=== PATIENT | female | born 1945 | race Caucasian/White ===

== ENCOUNTER → 2016-03-17 | Outpatient (CLI) | payer MEDICARE ==
--- NOTE | 2016-03-19 12:30 | XCELERA REPORT ---
[address] [address] Lower Extremity Arterial Evaluation Name: VALENTE CAMACHO Age: 71 yrs Gender: Female : 1945 Patient Status: Outpatient Patient Location: Study Date: 03/17/2016 11:05 AM Procedure: A color flow and duplex scan of the lower extremity arteries was performed bilaterally with velocity and waveform anaylsis. Ankle brachial indicies performed. Reason For Study: PVD Ordering Physician: APPLE PUCKETT Performed By: Lyndon Bazzi Measurements and Calculations Right Left SELF RISING FLOUR MIXER PSV 156.3 174.8 cm/sec Prox PFA PSV -112.6 -91.5 cm/sec Dist SFA PSV -99.9 -101.3 cm/sec Prox Pop A PSV 98.1 67.8 cm/sec Dist ANNE PSV 78.1 93.8 cm/sec Dist DENTAL PATIENT COORDINATOR PSV 79.2 92.8 cm/sec Sang Pedis PSV 88.2 -66.8 cm/sec Right Side Arterial Evaluation Normal velocity, waveform and triphasic flow are present, from the Common Femoral artery down to the infrageniculate vessels. The ankle-brachial index is 1.13. 0 % stenosis is noted. Left Side Arterial Evaluation Normal velocity, waveform and triphasic flow are present, from the Common Femoral artery down to the infrageniculate vessels. The ankle-brachial index is 1.10. 0 % stenosis is noted. Interpretation Summary No hemodynamically significant lesions in the bilateral lower extremities, on duplex imaging, at rest. : APPLE PUCKETT [place]
== END ==
LOC: SP 10:34
PROVIDERS: ATTEND Internal Medicine
DX: I73.9 Peripheral vascular disease, unspecified (principal)
CPT/HCPCS: 93925

== ENCOUNTER 2017-12-26 10:48 | Day surgery (SDC) | payer MEDICARE ==
[~2017-12-26 10:48] MED LIST: PROPOFOL INJ 200 MG/20 ML VIAL IV ONE
--- NOTE | 2017-12-26 11:30 | EKG REPORT ---
SEVERITY:- ABNORMAL ECG - AFIB/FLUT AND V-PACED COMPLEXES NONSPECIFIC T ABNORMALITIES, DIFFUSE LEADS : Confirmed by: Melissa Gonzalez MD 26-Dec-2017 11:28:40
[2017-12-26 13:33] VITALS: BP 138/69
--- NOTE | 2017-12-26 13:41 | Operative Report ---
Operative Report DATE OF SURGERY: 12/26/17 Operative Report: The risks, benefits and alternatives of the procedure including the risk of bleeding, perforation requiring surgery are explained to the patient in detail and informed consent is obtained. The patient is placed in a left, lateral decubital position. Timeout was called. Propofol medication is administered. A rectal examination is done which did not reveal any masses, tears or fissures. An Olympus videoscope was introduced into the patient's rectum. The scope was then carefully advanced all the way to the cecum. The cecum was identified by the usual anatomical landmarks including the ileocecal valve as well as the appendiceal office. Photodocumentation was obtained. The scope was then sequentially pulled back via the various segments of the colon including the ascending colon, hepatic flexure, transverse colon, splenic flexure, descending colon and finally to the rectosigmoid portions of the colon. Retroflexion maneuvers performed. The risks benefits and alternatives of the procedure explained to the patient in detail and informed consent is obtained,A GIF Olympus video scope was inserted into the patient's mouth and hypopharynx, the esophagus is identified intubated and insufflated, the scope was then advanced through the esophagus stomach and duodenum, retroflexion maneuver is done the esophagus stomach and first and second portions of the duodenum examined PREOPERATIVE DIAGNOSIS: Dysphagia. Personal history of polyps POSTOPERATIVE DIAGNOSIS: Successful intubation of the esophagus. Schatzki's ring that is broken. Gastritis status post biopsy rule out Helicobacter pylori. Duodenitis status post biopsy. Right colon inflammation status post biopsy. Diverticulosis without any evidence of diverticulitis. Internal hemorrhoids. Carbon dioxide insufflation of the colon is done OPERATION: Colonoscopy with biopsy. EGD with biopsy SURGEON: RHONA FRANKLIN ANESTHESIA: LMAC TISSUE REMOVED OR ALTERED: As noted above. COMPLICATIONS: None. ESTIMATED BLOOD LOSS: None. INTRAOPERATIVE FINDINGS: As noted above. PROCEDURE: Patient tolerated the procedure well. No immediate postprocedure complications are noted. Patient discharged in good condition. Discharge date 12/26/2017. Discharge diet: Regular. Discharge activity: Regular. 2-3-week follow-up to discuss findings. Patient is instructed call the office or proceed to the emergency room should there be any further problems or questions. Wait on the pathology.
== END 2017-12-26 13:17 | disposition home or self-care (01) ==
LOC: END 10:48
PROVIDERS: ATTEND Internal Medicine Gastroenterology
DX: K22.2 Esophageal obstruction (principal); K29.50 Unspecified chronic gastritis without bleeding; K29.80 Duodenitis without bleeding; K57.30 Diverticulosis of large intestine without perforation or abscess without bleeding; K52.9 Noninfective gastroenteritis and colitis, unspecified; K64.8 Other hemorrhoids; K44.9 Diaphragmatic hernia without obstruction or gangrene; Z86.010 Personal history of colon polyps; Z80.0 Family history of malignant neoplasm of digestive organs; I48.91 Unspecified atrial fibrillation; I10 Essential (primary) hypertension; J45.909 Unspecified asthma, uncomplicated; M19.90 Unspecified osteoarthritis, unspecified site; I25.10 Atherosclerotic heart disease of native coronary artery without angina pectoris; G47.30 Sleep apnea, unspecified; E78.5 Hyperlipidemia, unspecified; D72.819 Decreased white blood cell count, unspecified; Z79.899 Other long term (current) drug therapy; Z79.51 Long term (current) use of inhaled steroids; Z79.01 Long term (current) use of anticoagulants; Z88.8 Allergy status to other drugs, medicaments and biological substances; Z88.5 Allergy status to narcotic agent
CPT/HCPCS: 43239; 45380; 82962; 88305 ×2; 93005; 93010; J2704; 813

== ENCOUNTER 2019-07-17 08:17 | Day surgery (SDC) | payer MEDICARE ==
[2019-07-17 09:35] LABS: INTERNATIONAL RATION (INR) 1.26; PROTHROMBIN TIME 15.9 SEC (11.4-15.4)
[2019-07-17 09:36] LABS: PARTIAL THROMBOPLASTIN TIME 30.4 SEC (23.5-35.8)
[2019-07-17 13:15] VITALS: BP 130/70
--- NOTE | 2019-07-17 14:40 | RADIOLOGY REPORT (SQ) ---
EXAM DESCRIPTION: CT LUMBAR SPINE WITH; MYELOGRAM LUMBAR IMAGES COMPLETED DATE/TIME: 07/17/2019 11:03 am REASON FOR STUDY: SPINAL STENOSIS M48.062 SPINAL STENOSIS, LUMBAR REGION WITH NEUROGENIC EROS Z79. 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 TECHNIQUE: Fluoroscopic guided lumbar myelogram. LIMITATIONS: None. PROCEDURE: After written consent and assessment were obtained, the patient was brought into the fluo roscopy room and placed prone on the table. The patient's lower back was prepped in a sterile fashio n and an entry site was selected under live fluoroscopic guidance. The entry site was anesthetized wi th 1% lidocaine. The spinal needle was advanced through the skin and into the thecal sac at the level of L2-3. Contrast was injected into the thecal sac. Following the procedure the needle was removed and a sterile bandage was placed of the site. CONTRAST: Omnipaque 180 13 cc. IMAGES ACQUIRED: 16 TECHNIQUE: After performing lumbar myelogram, axial images were acquired through the lumbar spine wi thout intravenous contrast. Images reviewed with lung, soft tissue and bone windows. Reconstructed coronal and sagittal MPR images reviewed. All images stored on PACS. All CT scanners at this facility use dose modulation, iterative reconstruction, and/or weight based d osing when appropriate to reduce radiation dose to as low as reasonably achievable (ALARA). [facility]: Dose Right [facility]: CareDose [facility]: Dose Right [facility]: Teradose 4D [facility]: [employer] FINDINGS: SEGMENTATION: 5 yrq-xqv-rgpeaaj lumbar vertebral bodies. ALIGNMENT: There is grade 1 anterolisthesis of L4 on L5. Normal lumbar lordosis. No significant sco liosis. VERTEBRAL BODIES: No fracture or dislocation. Multilevel osteophytosis. No significant compression deformity. HARDWARE: None in the spine. DISCS: L1-L2: Degenerative disc disease with significant disc height loss. Circumferential posterior disc b ulging and osteophyte complex with resultant mild canal stenosis. There is epbv-ai-laqzmddn bilatera l neural foraminal narrowing secondary to disc disease. L2-L3: Significant disc height loss and osteophytosis. Posterior disc osteophyte complex with result ant mild central canal stenosis. There is moderate right and mzti-it-doyhxkbv left neural foraminal narrowing secondary to disc disease. L3-L4: Significant degenerative disc disease with disc height loss and posterior disc osteophyte comp yosvany. Bilateral facet arthropathy. There is oocq-jf-auvaoueb spinal canal stenosis with narrowing of the lateral recess and contact of the traversing nerve roots, left greater than right. There is mil d right and wjsq-ax-sexpoxgl left neural foraminal narrowing secondary to disc and facet disease. L4-L5: Grade 1 anterolisthesis of L4 on L5. There is significant disc height loss and osteophytosis with bilateral facet hypertrophy resulting in moderate to severe spinal canal stenosis and lateral re cess narrowing. There is hcbi-og-jpvuwokv right and moderate to severe left neural foraminal narrowi ng secondary to disc and facet disease. L5-S1: Significant disc height loss and facet arthropathy with mild to moderate canal stenosis. Ther e is severe right and moderate to severe left neural foraminal narrowing secondary to disc and facet disease. PEDICLES, TRANSVERSE PROCESSES: No definite pars defect. No definite fracture. FACETS, POSTERIOR ELEMENTS: Multilevel lower lumbar facet arthropathy greatest from L3-S1. VISUALIZED RIBS: No fractures. SOFT TISSUES: Small hiatal hernia. Aortic atherosclerosis. Right upper pole renal scarring. Nonobs tructing right renal stone versus parenchymal calcification. No acute process. Multiple pelvic phle boliths. OTHER: No other significant finding. IMPRESSION: 1. No evidence of acute bony abnormality of the lumbar spine. 2. Significant multilevel degenerative disc disease and facet arthropathy throughout the lumbar spin e. Findings most significant at L4-5 with resultant moderate to severe spinal canal stenosis seconda ry to facet and disc disease. Associated moderate to severe left neural foraminal narrowing at that level. 3. Multilevel additional degenerative changes with level specific findings as above. COMMENT: Patient medication list reviewed: Yes- Quality ID# [id number]:Eligible professional attests to doc umenting in the medical record they obtained, updated, or reviewed the patient's current medications. TECHNICAL DOCUMENTATION: JOB ID: [id number] Quality ID # [id number]: Final reports with documentation of one or more dose reduction techniques (e.g., Au tomated exposure control, adjustment of the mA and/or kV according to patient size, use of iterative reconstruction technique) 2010 [employer]- All Rights Reserved Reading location - IP/workstation name: [email or web address]
--- NOTE | 2019-07-17 14:40 | RADIOLOGY REPORT (SQ) ---
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 TECHNIQUE: Fluoroscopic guided lumbar myelogram. LIMITATIONS: None. PROCEDURE: After written consent and assessment were obtained, the patient was brought into the fluo roscopy room and placed prone on the table. The patient's lower back was prepped in a sterile fashio n and an entry site was selected under live fluoroscopic guidance. The entry site was anesthetized wi th 1% lidocaine. The spinal needle was advanced through the skin and into the thecal sac at the level of L2-3. Contrast was injected into the thecal sac. Following the procedure the needle was removed and a sterile bandage was placed of the site. CONTRAST: Omnipaque 180 13 cc. IMAGES ACQUIRED: 16 TECHNIQUE: After performing lumbar myelogram, axial images were acquired through the lumbar spine wi thout intravenous contrast. Images reviewed with lung, soft tissue and bone windows. Reconstructed coronal and sagittal MPR images reviewed. All images stored on PACS. All CT scanners at this facility use dose modulation, iterative reconstruction, and/or weight based d osing when appropriate to reduce radiation dose to as low as reasonably achievable (ALARA). [facility]: Dose Right [facility]: CareDose [facility]: Dose Right [facility]: Teradose 4D [facility]: [employer] FINDINGS: SEGMENTATION: 5 ipa-bqy-afupptu lumbar vertebral bodies. ALIGNMENT: There is grade 1 anterolisthesis of L4 on L5. Normal lumbar lordosis. No significant sco liosis. VERTEBRAL BODIES: No fracture or dislocation. Multilevel osteophytosis. No significant compression deformity. HARDWARE: None in the spine. DISCS: L1-L2: Degenerative disc disease with significant disc height loss. Circumferential posterior disc b ulging and osteophyte complex with resultant mild canal stenosis. There is ndrt-ho-usjcivou bilatera l neural foraminal narrowing secondary to disc disease. L2-L3: Significant disc height loss and osteophytosis. Posterior disc osteophyte complex with result ant mild central canal stenosis. There is moderate right and vciw-pg-pdifexuc left neural foraminal narrowing secondary to disc disease. L3-L4: Significant degenerative disc disease with disc height loss and posterior disc osteophyte comp yosvany. Bilateral facet arthropathy. There is zslz-kb-scxatfsd spinal canal stenosis with narrowing of the lateral recess and contact of the traversing nerve roots, left greater than right. There is mil d right and sqqz-wd-peccmxms left neural foraminal narrowing secondary to disc and facet disease. L4-L5: Grade 1 anterolisthesis of L4 on L5. There is significant disc height loss and osteophytosis with bilateral facet hypertrophy resulting in moderate to severe spinal canal stenosis and lateral re cess narrowing. There is dgnd-fz-jogafmic right and moderate to severe left neural foraminal narrowi ng secondary to disc and facet disease. L5-S1: Significant disc height loss and facet arthropathy with mild to moderate canal stenosis. Ther e is severe right and moderate to severe left neural foraminal narrowing secondary to disc and facet disease. PEDICLES, TRANSVERSE PROCESSES: No definite pars defect. No definite fracture. FACETS, POSTERIOR ELEMENTS: Multilevel lower lumbar facet arthropathy greatest from L3-S1. VISUALIZED RIBS: No fractures. SOFT TISSUES: Small hiatal hernia. Aortic atherosclerosis. Right upper pole renal scarring. Nonobs tructing right renal stone versus parenchymal calcification. No acute process. Multiple pelvic phle boliths. OTHER: No other significant finding. IMPRESSION: 1. No evidence of acute bony abnormality of the lumbar spine. 2. Significant multilevel degenerative disc disease and facet arthropathy throughout the lumbar spin e. Findings most significant at L4-5 with resultant moderate to severe spinal canal stenosis seconda ry to facet and disc disease. Associated moderate to severe left neural foraminal narrowing at that level. 3. Multilevel additional degenerative changes with level specific findings as above. COMMENT: Patient medication list reviewed: Yes- Quality ID# [id number]:Eligible professional attests to doc umenting in the medical record they obtained, updated, or reviewed the patient's current medications. TECHNICAL DOCUMENTATION: JOB ID: [id number] Quality ID # [id number]: Final reports with documentation of one or more dose reduction techniques (e.g., Au tomated exposure control, adjustment of the mA and/or kV according to patient size, use of iterative reconstruction technique) 2010 [employer]- All Rights Reserved Reading location - IP/workstation name: [email or web address]
== END 2019-07-17 13:10 | disposition home or self-care (01) ==
LOC: RAD 08:17
PROVIDERS: ATTEND Orthopaedic Surgery
DX: Z88.5 Allergy status to narcotic agent (principal); M48.062 Spinal stenosis, lumbar region with neurogenic claudication; Z79.01 Long term (current) use of anticoagulants; Z88.8 Allergy status to other drugs, medicaments and biological substances; Z79.899 Other long term (current) drug therapy; E78.5 Hyperlipidemia, unspecified; I48.20 Chronic atrial fibrillation, unspecified; I11.0 Hypertensive heart disease with heart failure; I50.9 Heart failure, unspecified; J43.9 Emphysema, unspecified; Z95.810 Presence of automatic (implantable) cardiac defibrillator; D64.9 Anemia, unspecified; Z87.891 Personal history of nicotine dependence
CPT/HCPCS: 36415; 72132; 72265; 85610; 85730

== ENCOUNTER → 2019-08-20 | Outpatient (CLI) | payer MEDICARE ==
[2019-08-20 10:09] LABS: ANION GAP 7 (5-19); BLOOD UREA NITROGEN 26 mg/dL (7-20); CALCIUM 10.8 mg/dL (8.4-10.2); CARBON DIOXIDE 32 mmol/L (22-30); CHLORIDE 99 mmol/L (98-107); GLUCOSE 144 mg/dL (75-110); POTASSIUM 4.1 mmol/L (3.6-5.0)
== END ==
LOC: OD 08:23
PROVIDERS: ATTEND Internal Medicine Nephrology
DX: N18.3 Chronic kidney disease, stage 3 (moderate) (principal); E83.52 Hypercalcemia
CPT/HCPCS: 36415; 80048

== ENCOUNTER → 2019-11-21 | Outpatient (CLI) | payer MEDICARE ==
[2019-11-21 14:15] LABS: ANION GAP 12 (5-19); BLOOD UREA NITROGEN 13 mg/dL (7-20); CALCIUM 10.3 mg/dL (8.4-10.2); CARBON DIOXIDE 30 mmol/L (22-30); CHLORIDE 100 mmol/L (98-107); GLUCOSE 134 mg/dL (75-110); POTASSIUM 3.3 mmol/L (3.6-5.0)
== END ==
LOC: OD 12:30
PROVIDERS: ATTEND Internal Medicine Nephrology
DX: I12.9 Hypertensive chronic kidney disease with stage 1 through stage 4 chronic kidney disease, or unspecified chronic kidney disease (principal); N18.3 Chronic kidney disease, stage 3 (moderate); E11.22 Type 2 diabetes mellitus with diabetic chronic kidney disease
CPT/HCPCS: 36415; 80048; 82043; 82306; 82570